=== PATIENT | female | born 1975 | race African-American/Black ===

== ENCOUNTER 2019-08-06 09:57 | Inpatient (IN) ==
[2019-08-06 12:03] LABS: Basophils % 0.3 % (0.0-0.8); Eosinophils # 0.1 10*3/uL (0.0-0.87); Eosinophils % 1.3 % (0.00-10.9); Hematocrit 36.6 VOL% (35.7-47.0); Hemoglobin 11.3 GM/DL (12.0-16.0); Immature Granulocytes % 0.2 %; Immature Granulocytes Absolute 0.02 #; Lymphocytes # 2.3 10*3/uL (1.4-4.0); Lymphocytes % 25.4 % (21.3-54.2); Mean Corpuscular HGB Conc 30.9 GM/DL (32-36); Mean Corpuscular Volume 95.3 FL (87-102); Mean Platelet Volume 10.9 FL (9.6-12.0); Monocytes % 7.6 % (1.7-12.7); Neutrophils % 65.2 % (38.7-73.9); Platelet Count 210 T/CUMM (130-400); Red Blood Count 3.84 MC/CUMM (3.8-5.5); Red Cell Distribution Width 15.7 % (9.3-17.3); White Blood Count 9.2 T/CUMM (4-12)
[2019-08-06 12:28] LABS: INR 1.1; PT Patient Result 11.6 SECS (9.6-12.2); Partial Thromboplastin Time 28.2 SECS (20.8-36.0)
[2019-08-06 12:32] LABS: Alanine Aminotransferase 49 U/L (13-56); Albumin 3.6 G/DL (3.4-5.0); Alkaline Phosphatase 129 U/L (45-117); Aspartate Amino Transferase 35 U/L (0-37); Blood Urea Nitrogen 9 MG/DL (7-18); Calcium 8.9 MG/DL (8.5-10.1); Estimated Glom Filtration Rate 106 ML/MIN; Glucose 95 MG/DL (74-106); Osmolality,Calculated 279.3 MOS/KG (273-304)
[2019-08-06 12:33] LABS: Troponin I 0.106 NG/ML (0.00-0.045)
[2019-08-06] MEDS ORDERED: ACETAMINOPHEN 325 MG TABLET PO PRN (15:11)
[2019-08-06] MEDS ORDERED: DOCUSATE SODIUM 100 MG CAPSULE PO PRN (15:11)
[2019-08-06] MEDS ORDERED: NICOTINE 21 MG/24 HR PATCH TRANSDERM PRN (15:11)
[2019-08-06] MEDS ORDERED: ONDANSETRON 4 MG/2 ML VIAL IV PRN (15:11)
[2019-08-06] MEDS: FUROSEMIDE 40 MG/4 ML VIAL IV SCH (16:41)
[2019-08-06 17:17] LABS: Risk Ratio 3.06; Thyroid Stimulating Hormone 1.33 uIU/ml (0.358-3.74); VLDL CHOLESTEROL 16.4 MG/DL
[2019-08-06] MEDS: ENOXAPARIN 40 MG/0.4 ML SYRINGE SUBCUT SCH (20:52)
[2019-08-06] MEDS: METOPROLOL TARTRATE 25 MG TABLET PO SCH (20:52)
[2019-08-06] MEDS: VALSARTAN 80 MG TABLET PO SCH (20:52)
[2019-08-07 06:50] LABS: Basophils % 0.4 % (0.0-0.8); Eosinophils # 0.3 10*3/uL (0.0-0.87); Eosinophils % 3.2 % (0.00-10.9); Hematocrit 38.6 VOL% (35.7-47.0); Hemoglobin 11.8 GM/DL (12.0-16.0); Immature Granulocytes % 0.3 %; Immature Granulocytes Absolute 0.02 #; Lymphocytes # 2.5 10*3/uL (1.4-4.0); Lymphocytes % 32.6 % (21.3-54.2); Mean Corpuscular HGB Conc 30.6 GM/DL (32-36); Mean Corpuscular Volume 95.1 FL (87-102); Mean Platelet Volume 11.4 FL (9.6-12.0); Neutrophils % 54.5 % (38.7-73.9); Platelet Count 208 T/CUMM (130-400); Red Blood Count 4.06 MC/CUMM (3.8-5.5); Red Cell Distribution Width 15.7 % (9.3-17.3); White Blood Count 7.8 T/CUMM (4-12)
[2019-08-07 07:19] LABS: Calcium 8.7 MG/DL (8.5-10.1); Osmolality,Calculated 279.4 MOS/KG (273-304)
[2019-08-07] MEDS: FUROSEMIDE 40 MG/4 ML VIAL IV SCH ×2 (08:55→16:32)
[2019-08-07] MEDS: VALSARTAN 80 MG TABLET PO SCH ×2 (08:55→20:49)
[2019-08-07] MEDS: METOPROLOL TARTRATE 25 MG TABLET PO SCH ×2 (08:55→20:49)
[2019-08-07] MEDS: PANTOPRAZOLE 40 MG TABLET PO SCH (08:55)
[2019-08-07] MEDS ORDERED: ASPIRIN 325 MG TABLET PO ONE (16:05)
[2019-08-07] MEDS ORDERED: diphenhydrAMINE CAP 25 MG CAPSULE PO ONE (16:42)
[2019-08-07] MEDS ORDERED: DIAZEPAM 5 MG TABLET PO ONE (16:42)
[2019-08-07] MEDS ORDERED: POTASSIUM CHLORIDE RIDER 10 MEQ in PREMIX 1 EACH IV PRN (16:42)
[2019-08-07] MEDS ORDERED: MAGNESIUM SULF RIDER 2 GM in PREMIX 1 EACH IV PRN (16:42)
[2019-08-07] MEDS: ENOXAPARIN 40 MG/0.4 ML SYRINGE SUBCUT SCH (20:50)
[2019-08-08 05:36] LABS: Basophils % 0.5 % (0.0-0.8); Eosinophils # 0.2 10*3/uL (0.0-0.87); Eosinophils % 3.6 % (0.00-10.9); Hematocrit 40.6 VOL% (35.7-47.0); Hemoglobin 12.3 GM/DL (12.0-16.0); Immature Granulocytes % 0.3 %; Immature Granulocytes Absolute 0.02 #; Lymphocytes # 2.1 10*3/uL (1.4-4.0); Lymphocytes % 33.2 % (21.3-54.2); Mean Corpuscular HGB Conc 30.3 GM/DL (32-36); Mean Corpuscular Volume 96.2 FL (87-102); Mean Platelet Volume 11.2 FL (9.6-12.0); Neutrophils % 51.4 % (38.7-73.9); Platelet Count 209 T/CUMM (130-400); Red Blood Count 4.22 MC/CUMM (3.8-5.5); Red Cell Distribution Width 15.9 % (9.3-17.3); White Blood Count 6.4 T/CUMM (4-12)
[2019-08-08 06:06] LABS: Osmolality,Calculated 281.4 MOS/KG (273-304)
[2019-08-08] MEDS: FUROSEMIDE 40 MG/4 ML VIAL IV SCH (09:55)
[2019-08-08] MEDS: VALSARTAN 80 MG TABLET PO SCH (09:56)
[2019-08-08] MEDS: METOPROLOL TARTRATE 25 MG TABLET PO SCH (09:56)
[2019-08-08] MEDS: PANTOPRAZOLE 40 MG TABLET PO SCH (09:56)
[2019-08-08] MEDS ORDERED: LIDOCAINE 1% 20 ML VIAL ONE (11:57)
[2019-08-08] MEDS ORDERED: HEPARIN/NACL 0.9% 2 UNITS/ML 1,000 ML IV ONE (11:57)
[2019-08-08] MEDS ORDERED: DIAZEPAM 5 MG TABLET ONE (13:05)
[2019-08-08] MEDS ORDERED: diphenhydrAMINE CAP 25 MG CAPSULE ONE (13:06)
[2019-08-08] MEDS ORDERED: MIDAZOLAM 2 MG/2 ML VIAL ONE ×2 (13:28→13:42)
[2019-08-08] MEDS ORDERED: fentaNYL 100 MCG/2 ML VIAL ONE (13:42)
[2019-08-08] MEDS ORDERED: ACETAMINOPHEN/CODEINE 300-30 MG TABLET PO PRN (13:58)
[2019-08-08] MEDS ORDERED: MORPHINE 4 MG/1 ML VIAL IV PRN (13:58)
[2019-08-08] MEDS: FUROSEMIDE 20 MG TABLET PO SCH (18:14)
[2019-08-08] MEDS ORDERED: SACUBITRIL/VALSARTAN 49-51 MG TABLET PO SCH (21:00)
[2019-08-08] MEDS: ENOXAPARIN 40 MG/0.4 ML SYRINGE SUBCUT SCH (21:07)
[2019-08-09 04:57] LABS: Basophils % 0.3 % (0.0-0.8); Eosinophils # 0.2 10*3/uL (0.0-0.87); Eosinophils % 3.2 % (0.00-10.9); Hematocrit 40.2 VOL% (35.7-47.0); Hemoglobin 12.5 GM/DL (12.0-16.0); Immature Granulocytes % 0.3 %; Immature Granulocytes Absolute 0.02 #; Lymphocytes # 2.2 10*3/uL (1.4-4.0); Lymphocytes % 32.3 % (21.3-54.2); Mean Corpuscular HGB Conc 31.1 GM/DL (32-36); Mean Corpuscular Volume 94.6 FL (87-102); Mean Platelet Volume 11.8 FL (9.6-12.0); Monocytes % 9.4 % (1.7-12.7); Neutrophils % 54.5 % (38.7-73.9); Platelet Count 215 T/CUMM (130-400); Red Blood Count 4.25 MC/CUMM (3.8-5.5); Red Cell Distribution Width 15.8 % (9.3-17.3); White Blood Count 6.8 T/CUMM (4-12)
[2019-08-09 05:18] LABS: Osmolality,Calculated 283.4 MOS/KG (273-304)
[2019-08-09] MEDS ORDERED: SPIRONOLACTONE 25 MG TABLET PO SCH (09:00)
[2019-08-09] MEDS ORDERED: METOPROLOL SUCCINATE XL 25 MG TABLET PO SCH (09:00)
[2019-08-09] MEDS: FUROSEMIDE 20 MG TABLET PO SCH (09:55)
[2019-08-09] MEDS: PANTOPRAZOLE 40 MG TABLET PO SCH (09:55)
[2019-08-09 11:10] VITALS: BP 137/76
== END 2019-08-09 11:45 | disposition home or self-care (01) | DRG 286 ==
LOC: N.ED 09:57 → N.EDINP 09:57 → SUATTDRO 15:00 → N.TELEN 16:38 → SUATTDRO 08-08 12:45
PROVIDERS: ADMIT Phlebology; ATTEND Internal Medicine
PROC: CLCCHCL (ICD-10-PCS; 2019-08-08 12:45)